=== PATIENT | male | born 1930 | race Caucasian/White ===

== ENCOUNTER 2016-12-18 07:16 | Day surgery (SDC) | payer OTHER, BC ==
[2016-12-17 14:55] VITALS: BMI 24.5
[2016-12-18] MEDS ORDERED: PROPOFOL 20 ML ONE (07:45)
[2016-12-18 08:55] VITALS: TEMP 97.7
[2016-12-18 09:40] VITALS: BP 140/69; PULSE 61
--- NOTE | 2016-12-19 13:56 | PATH ---
Surgical Pathology Report Patient Name: CONNIE HARDY [facility]. Rec. #: [id number] /Age/Gender: 1930 (Age: 86) / M Account: [id number] Location: ASU-ENDOSCOPY Taken: 12/18/2016 Received: 12/18/2016 Reported: 12/19/2016 Physicians: Diogenes De Luna M.D. Specimen(s) Received A: PROXIMAL TRANSVERSE POLYP B: BX CECAL POLYP Clinical History History of colon adenoma Colon polyp, diverticulosis Final Diagnosis A. COLON, PROXIMAL TRANSVERSE, POLYP, BIOPSY/POLYPECTOMY: FRAGMENTS OF TUBULAR ADENOMA. ADDITIONAL FRAGMENTS OF HYPERPLASTIC COLONIC MUCOSA B. COLON, CECUM, POLYP, BIOPSY: FRAGMENTS OF TUBULAR ADENOMA. Electronically Signed Meliton Richmond M.D. Gross Description A. Received in formalin labeled "biopsy proximal transverse polyp" is a 0.7 x 0.6 x 0.1 cm aggregate of ramires soft tissue fragments. The formalin is filtered and the specimen is entirely submitted in one cassette. B. Received in formalin, labeled "biopsy cecal polyp" are 3 ramires, irregular portions of soft tissue ranging from 0.1-0.3 cm in greatest dimension. The specimens are submitted in toto in one cassette. 12/18/201612/18/2016
== END 2016-12-18 09:46 | disposition home or self-care (01) ==
LOC: JASU-ENDO 07:16
PROVIDERS: ATTEND Internal Medicine Gastroenterology
PROC: 0DBH8ZX Excision of Cecum, Via Natural or Artificial Opening Endoscopic, Diagnostic (ICD-10-PCS; 2016-12-18)
PROC: 0DBL8ZX Excision of Transverse Colon, Via Natural or Artificial Opening Endoscopic, Diagnostic (ICD-10-PCS; principal; 2016-12-18 08:00)
DX: Z12.11 Encounter for screening for malignant neoplasm of colon (principal); Z86.010 Personal history of colon polyps; D12.0 Benign neoplasm of cecum; D12.3 Benign neoplasm of transverse colon; K64.8 Other hemorrhoids; K57.30 Diverticulosis of large intestine without perforation or abscess without bleeding; Z80.0 Family history of malignant neoplasm of digestive organs
CPT/HCPCS: 88305-TC